=== PATIENT | male | born 1955 | race Caucasian/White ===

== ENCOUNTER → 2017-05-02 | Outpatient (CLI) | payer BC ==
[~2017-05-02] MED LIST: FLEXERIL10 MG PO; MOTRIN800 MG PO; NORCO 325 MG-101 TAB PO; NORFLEX100 MG PO
[2017-05-02 14:55] LABS: PHOSPHOROUS 3.3 mg/dL (2.5-4.9); URIC ACID 5.3 mg/dL (3.5-7.2)
[2017-05-02 15:45] LABS: PTH INTACT 86.4 pg/mL (14.0-72.0); VITAMIN D, 25-HYDROXY 29.3 ng/mL (30-100)
== END | disposition home or self-care (01) ==
LOC: LAB 13:48
PROVIDERS: Internal Medicine Nephrology
DX: N20.0 Calculus of kidney (principal); E55.9 Vitamin D deficiency, unspecified; N25.81 Secondary hyperparathyroidism of renal origin; N40.0 Benign prostatic hyperplasia without lower urinary tract symptoms

== ENCOUNTER → 2017-05-03 | Outpatient (CLI) | payer BC | END | disposition home or self-care (01) | LOC: LAB 02:27 → CT 02:27 | PROVIDERS: Radiology Diagnostic Radiology | DX: D41.01 Neoplasm of uncertain behavior of right kidney (principal) ==

== ENCOUNTER 2019-04-06 10:08 | Emergency (ER) | payer OTHER ==
[~2019-04-06] VITALS: Ht 187.9 cm; Wt 109.3 kg
[2019-04-06] MEDS ORDERED: IBUPROFEN600 MG PO (11:20)
== END 2019-04-06 11:26 | disposition home or self-care (01) ==
LOC: ED 10:08
DX: M70.71 Other bursitis of hip, right hip (principal); Z79.899 Other long term (current) drug therapy; Y93.H2 Activity, gardening and landscaping

== ENCOUNTER → 2020-04-15 | Outpatient (CLI) | payer OTHER ==
[~2020-04-15] MED LIST changes: +IBUPROFEN600 MG PO
== END | disposition home or self-care (01) ==
LOC: US 14:24 → LAB 14:24 → US 14:30
DX: N39.0 Urinary tract infection, site not specified (principal); R10.9 Unspecified abdominal pain

== ENCOUNTER → 2021-07-18 | Outpatient (CLI) | payer MEDICARE | END | disposition home or self-care (01) | LOC: LAB 11:11 | PROVIDERS: ATTEND Urology | DX: Z12.5 Encounter for screening for malignant neoplasm of prostate (principal) ==

== ENCOUNTER → 2022-08-01 | Outpatient (CLI) | payer MEDICARE | END | disposition home or self-care (01) | LOC: LAB 09:33 | PROVIDERS: ATTEND Urology | DX: Z12.5 Encounter for screening for malignant neoplasm of prostate (principal) ==

== ENCOUNTER → 2022-10-30 | Day surgery (SDC) | payer MEDICARE ==
[~2022-10-30] VITALS: Ht 187.9 cm; Wt 111.1 kg
[~2022-10-30] MED LIST changes: +FLOMAX0.4 MG PO; +HYDROCODONE-AC1 EAC1 PO; +PEPCID20 MG PO; +PROVENTIL HFA6.7 GM INH
[2022-10-30 09:15] VITALS: BP 146/75
[2022-10-30 10:45] VITALS: BP 98/56
[2022-10-30 11:00] VITALS: BP 100/49
[2022-10-30 11:15] VITALS: BP 105/74
== END | disposition home or self-care (01) ==
LOC: SDC 10-26 08:45
PROVIDERS: ATTEND Surgery
DX: L72.0 Epidermal cyst (principal); D48.9 Neoplasm of uncertain behavior, unspecified; L03.90 Cellulitis, unspecified; K21.9 Gastro-esophageal reflux disease without esophagitis; J45.909 Unspecified asthma, uncomplicated; G43.909 Migraine, unspecified, not intractable, without status migrainosus; Z98.890 Other specified postprocedural states

== ENCOUNTER → 2023-08-06 | Outpatient (CLI) | payer MEDICARE | END | disposition home or self-care (01) | LOC: LAB 15:01 | PROVIDERS: ATTEND Urology | DX: Z12.5 Encounter for screening for malignant neoplasm of prostate (principal); N31.9 Neuromuscular dysfunction of bladder, unspecified; R31.9 Hematuria, unspecified ==

== ENCOUNTER → 2024-08-04 | Outpatient (CLI) | payer MEDICARE | END | disposition home or self-care (01) | LOC: LAB 13:57 | PROVIDERS: ATTEND Internal Medicine | DX: N40.1 Benign prostatic hyperplasia with lower urinary tract symptoms (principal) ==

== ENCOUNTER → 2024-10-20 | Outpatient (CLI) | payer MEDICARE ==
[~2024-10-20] MED LIST changes: +CIPRO500 MG PO; +DULCOLAX5 M1 PO; +METRONIDAZOLE500 M1 PO
[2024-10-20 11:15] LABS: BASO # 0.1 10*3/uL (0.0-0.1); BASO % 0.8 % (0.0-1.0); EOS # 0.5 10*3/uL (0.0-0.4); MEAN CELL VOLUME 87.9 fl (80.0-94.0); MEAN CORPUSCULAR HGB 28.8 pg (27.0-31.0); MEAN CORPUSCULAR HGB CONC 32.8 g/dl (33.0-37.0); MEAN PLATELET VOLUME 9.4 fl (9.6-12.3); MONO # 0.6 10*3/uL (0.1-1.0); MONO % 10.7 % (3.0-9.0); NEUT # 3.4 10*3/uL (2.3-7.9); NEUT % 57.4 % (47.0-73.0); PLATELET COUNT AUTOMATED 239 10*3/uL (130-400); RED BLOOD COUNT 4.89 10*6/uL (4.50-5.90); RED CELL DISTRI WIDTH 12.7 % (0-14.5)
[2024-10-20 12:18] LABS: ALKALINE PHOSPHATASE 172 U/L (46-116); BUN 14 mg/dl (9-23); CHLORIDE 101 mmol/L (98-107); POTASSIUM 4.1 mmol/L (3.4-5.1); SGPT/ALT 74 U/L (5-49)
== END | disposition home or self-care (01) ==
LOC: LAB 10:53
PROVIDERS: ATTEND Internal Medicine
DX: K81.0 Acute cholecystitis (principal)

== ENCOUNTER → 2025-01-21 | Outpatient (CLI) | payer MEDICARE | END | disposition home or self-care (01) | LOC: LAB 10:38 | PROVIDERS: ATTEND Urology | DX: N40.1 Benign prostatic hyperplasia with lower urinary tract symptoms (principal) ==